=== PATIENT | female | born 1940 | race Two or more races ===

== ENCOUNTER → 2016-11-19 | Outpatient (CLI) | payer OTHER, MEDICARE ==
--- NOTE | 2016-11-19 10:36 | DX ---
Right elbow, 3 views. History: Trauma, pain Comparison examination:none available Findings: A 6 mm bone fragment arises from the coronoid process, associated with an elbow joint effu rudi. Alignment is normal. Joint spaces are maintained. Impression: 6 mm avulsion fracture from the coronoid process. Results called to Dr. Joaquina Bang at the time of the reading.
== END ==
LOC: FIMAGING 09:27
PROVIDERS: ATTEND Family Medicine
DX: S52.041A Displaced fracture of coronoid process of right ulna, initial encounter for closed fracture (principal); M25.521 Pain in right elbow

== ENCOUNTER → 2018-02-07 | Outpatient (CLI) | payer OTHER, MEDICARE | LOC: BHFA 14:00 | PROVIDERS: ATTEND Internal Medicine Cardiovascular Disease | DX: I25.10 Atherosclerotic heart disease of native coronary artery without angina pectoris (principal) | CPT/HCPCS: 78452; 93017; A9500; J2785 ==

== ENCOUNTER 2019-03-01 16:24 | Inpatient (IN) | payer OTHER, MEDICARE ==
--- NOTE | 2019-03-01 16:39 | EDPHY ---
H & P Stated Complaint: Recent chest cold, low oxygen at home. Time Seen by Provider: 03/01/19 16:38 HPI/ROS: CHIEF COMPLAINT: Cough, hypoxemia HISTORY OF PRESENT ILLNESS: The patient presents the emergency department with complaints of cough and hypoxemia. The patient's was recently sick with bronchitis. She is now developed symptoms. She reports a subjective fever. She has a dry hacking cough. She denies any abdominal pain, vomiting or diarrhea. She reports moderate dyspnea. REVIEW OF SYSTEMS: A comprehensive 10 point review of systems is otherwise negative aside from elements mentioned in the history of present illness. Source: Patient Exam Limitations: No limitations - Personal History Current Tetanus Diphtheria and Acellular Pertussis (TDAP): No - Medical/Surgical History Hx Asthma: No Hx Chronic Respiratory Disease: No Hx Diabetes: No Hx Cardiac Disease: Yes Hx Renal Disease: No Hx Cirrhosis: No Hx Alcoholism: No Hx HIV/AIDS: No Hx Splenectomy or Spleen Trauma: No Other PMH: htn, glaucoma,anxiety. lung ca remission. COPD. - Social History Smoking Status: Current every day smoker - Physical Exam Exam: General Appearance: Alert, no distress Eyes: Pupils equal and round no pallor or injection ENT, Mouth: Mucous membranes moist Respiratory: There are no retractions, lungs are clear to auscultation Cardiovascular: Regular rate and rhythm Gastrointestinal: Abdomen is soft and nontender, no masses, bowel sounds normal Neurological: A&O, normal motor function, normal sensory exam, normal cranial nerves Skin: Warm and dry, no rashes Musculoskeletal: Neck is supple nontender Extremities: symmetrical, full range of motion Constitutional: Initial Vital Signs Temperature (C) 36.5 C 03/01/19 16:26 Heart Rate 84 03/01/19 16:26 Respiratory Rate 20 03/01/19 16:26 Blood Pressure 151/100 H 03/01/19 16:26 O2 Sat (%) 79 L 03/01/19 16:26 O2 Delivery Mode Nasal Cannula O2 (L/minute) 3 Allergies/Adverse Reactions: oxycodone HCl [From OxyContin] Allergy (Intermediate, Verified 03/03/14 16:33) SYNCOPE/EMESIS Penicillins Allergy (Unknown, Verified 03/03/14 16:33) codeine [Codeine] Allergy (Verified 03/03/14 16:33) SYNCOPE/EMESIS oxycodone [Oxycodone] Allergy (Verified 03/03/14 16:33) SYNCOPE/EMESIS PLASTIC BANDAGES Allergy (Mild, Uncoded 03/03/14 16:33) Rash Home Medications: Medication Instructions Recorded Albuterol [Proventil Inhaler HFA 1 - 2 puffs IH Q4H PRN 03/03/14 (*)] Brimonidine 0.1% [ALPHAGAN P 0.1% 1 drops RTEYE TID 03/03/14 (*)] Calcium Carb W/Vit D [Calcium Carb 500 mg PO DAILY 03/03/14 W/Vit D 500/200 (*)] Diltiazem HCl [Diltiazem 24Hr ER] 300 mg PO DAILY@1800 03/03/14 Lisinopril [Zestril 20 mg (*)] 40 mg PO DAILY 03/03/14 Lumigan 0.01% (RX) 1 drop RTEYE HS 03/03/14 Multivitamins [Multivitamin (*)] 1 each PO DAILY 03/03/14 Psyllium Husk/Aspartame [Konsyl 3.5 gm PO DAILY 03/03/14 Psyllium Fiber Packet] Xanax 0.5 MG (RX) 0.5 mg PO TID PRN 03/03/14 Albuterol Hfa Anes Only [Proair 2 puffs IH QID #1 mdi 03/04/14 Hfa Anes Only] Fluticasone/Salmeter 250/50Mcg 1 puffs IH BID #1 disk 03/04/14 [Advair 250/50 (RX)] Hydrochlorothiazide [HCTZ (*)] 12.5 mg PO BID PRN #30 cap 03/04/14 Medical Decision Making - Diagnostics Imaging Results: Imaging Impressions Chest X-Ray 03/01/19 16:39 Impression: Increased haziness of the lung bases probably represents artifact from overlying breast tissue. There is mild central vascular prominence however. ED Course/Re-evaluation: Patient presents to the ED with dyspnea and a bronchospastic cough. The patient was noted to be hypoxemic and corrects with 2 L nasal cannula oxygen. Patient's chest x-ray demonstrates no evidence of a active infiltrate. The patient's was recently sick with bronchitis as well. The patient was treated with supplemental oxygen, IV Solu-Medrol and albuterol/ DuoNeb breathing treatments. Re-evaluated the patient at 7:00 p.m.. We attempted ambulation in the patient' s oxygen saturation dropped into the 60s. She will require admission to the hospital for further evaluation management. Antibiotics are withheld given the absence of infiltrate on chest x-ray. Consultation was made with Dr. Judi Madera from the hospitalist service who will admit the patient primarily. Differential Diagnosis: Differential diagnosis considered includes asthma, bronchitis, pneumonia - Data Points Laboratory Results: Laboratory Results 03/01/19 16:50 03/01/19 16:50 03/01/19 03/01/19 03/01/19 16:50 16:50 16:50 WBC 7.97 10^3/uL 10^3/uL (3.80-9.50) RBC 4.69 10^6/uL 10^6/uL (4.18-5.33) Hgb 14.8 g/dL g/dL (12.6-16.3) Hct 43.1 % % (38.0-47.0) MCV 91.9 fL fL (81.5-99.8) MCH 31.6 pg pg (27.9-34.1) MCHC 34.3 g/dL g/dL (32.4-36.7) RDW 13.1 % % (11.5-15.2) Plt Count 165 10^3/uL 10^3/uL (150-400) MPV 8.9 fL fL (8.7-11.7) Neut % (Auto) 64.7 % % (39.3-74.2) Lymph % (Auto) 18.6 % % (15.0-45.0) [place] % (Auto) 15.2 % H % (4.5-13.0) Eos % (Auto) 0.5 % L % (0.6-7.6) Baso % (Auto) 0.5 % % (0.3-1.7) Nucleat RBC Rel Count 0.0 % % (0.0-0.2) Absolute Neuts (auto) 5.16 10^3/uL 10^3/uL (1.70-6.50) Absolute Lymphs (auto) 1.48 10^3/uL 10^3/uL (1.00-3.00) Absolute Monos (auto) 1.21 10^3/uL H 10^3/uL (0.30-0.80) Absolute Eos (auto) 0.04 10^3/uL 10^3/uL (0.03-0.40) Absolute Basos (auto) 0.04 10^3/uL 10^3/uL (0.02-0.10) Absolute Nucleated RBC 0.00 10^3/uL 10^3/uL (0-0.01) Immature Gran % 0.5 % % (0.0-1.1) Immature Gran # 0.04 10^3/uL 10^3/uL (0.00-0.10) VBG Lactic Acid 2.0 mmol/L mmol/L (0.7-2.1) Sodium 126 mEq/L L mEq/L (135-145) Potassium 4.1 mEq/L mEq/L (3.5-5.2) Chloride 87 mEq/L L mEq/L (97-110) Carbon Dioxide 29 mEq/l mEq/l (22-31) Anion Gap 10 mEq/L mEq/L (6-14) BUN 7 mg/dL mg/dL (7-23) Creatinine 0.5 mg/dL L mg/dL (0.6-1.0) Estimated GFR > 60 Glucose 98 mg/dL mg/dL (70-100) Calcium 8.6 mg/dL mg/dL (8.5-10.4) Medications Given: Discontinued Medications Albuterol (Proventil Neb) 3 ml IH EDNOW ONE Stop: 03/01/19 17:37 Last Admin: 03/01/19 18:22 Dose: 3 ml Albuterol/Ipratropium (Duoneb) 3 ml IH EDNOW ONE Stop: 03/01/19 17:37 Last Admin: 03/01/19 18:22 Dose: 3 ml Methylprednisolone Sodium Succinate (Solu-Medrol) 125 mg IVP EDNOW ONE Stop: 03/01/19 17:37 Last Admin: 03/01/19 18:26 Dose: 125 mg Departure - Departure Disposition: [facility] Inpatient Acute Clinical Impression: Acute bronchitis Condition: Good Referrals: Joaquina Bang MD [Primary Care Provider] - As per Instructions
[2019-03-01 17:13] LABS: PLATELET COUNT 165 10^3/uL (150-400)
[2019-03-01] MEDS ORDERED: ALBUTEROL 3 ML DEYVIAL IH ONE (17:36)
[2019-03-01] MEDS ORDERED: IPRATROPIUM/ALBUTEROL 3 ML DEYVIAL IH ONE (17:36)
[2019-03-01] MEDS ORDERED: methylPREDNISolone SOD SUCC 125 MG/2 ML VIAL IVP ONE (17:36)
[2019-03-01] MEDS ORDERED: oxyCODONE IR 5 MG TAB PO PRN (20:33)
[2019-03-01] MEDS ORDERED: HYDROCODONE/APAP 5/325 TAB PO PRN (20:33)
[2019-03-01] MEDS ORDERED: ONDANSETRON 4 MG/2 ML VIAL IVP PRN (20:33)
[2019-03-01] MEDS ORDERED: ACETAMINOPHEN 325 MG TAB PO PRN (20:33)
[2019-03-01] MEDS ORDERED: ONDANSETRON DISINTEGRATING 4 MG TAB PO PRN (20:33)
[2019-03-01] MEDS ORDERED: PROMETHAZINE HCL 25 MG/ML INJ IVP PRN (20:33)
[2019-03-01] MEDS ORDERED: ALBUTEROL 3 ML DEYVIAL IH PRN (20:33)
[2019-03-01] MEDS ORDERED: HYDROmorphONE/DILAUDID 1 MG/ML INJ IVP PRN (20:33)
[2019-03-01] MEDS ORDERED: ALPRAZolam 0.25 MG TAB PO PRN (20:35)
[2019-03-01] MEDS: IPRATROPIUM/ALBUTEROL 3 ML DEYVIAL IH SCH (21:18)
[2019-03-01] MEDS ORDERED: TEARS/DEXTRAN 70/HYPROMELLOSE 15 ML OPHT.BTL EACHEYE PRN (22:02)
--- NOTE | 2019-03-01 22:04 | PDGENHP ---
History and Physical - Chief Complaint sob - History of Present Illness 79 yo F with PMH that includes COPD and continued smoking of 1 pack/day, small cell lung cancer stage 4 diagnosed in 2010 and s/p xrt and chemo presenting with complaints of several days of increasing sob and found to have o2 dropping into the 60s on RA in the ER. Patient notes that her was ill with similar issues last week, and about 2 days after he got sick, she began to have sxs. He recovered however her sxs continued to worsen, she has been experiencing wheezing and difficulty breathing and cough that has been largely unproductive. She has had fever at home to 100.6 and has been feeling generally weak and fatigued, not much appetite. She has felt so poorly that for the last 4 days she has cut down from 1ppd to about 1/2 ppd. She does want to quit smoking and has tried in the past with chantix but not been successful. She had a similar illness last month, but did not get this sick from it. She does not use oxygen at home. History Information - Allergies/Home Medication List Allergies/Adverse Reactions: oxycodone HCl [From OxyContin] Allergy (Intermediate, Verified 03/03/14 16:33) SYNCOPE/EMESIS Penicillins Allergy (Unknown, Verified 03/03/14 16:33) codeine [Codeine] Allergy (Verified 03/03/14 16:33) SYNCOPE/EMESIS oxycodone [Oxycodone] Allergy (Verified 03/03/14 16:33) SYNCOPE/EMESIS PLASTIC BANDAGES Allergy (Mild, Uncoded 03/03/14 16:33) Rash Home Medications: ALPRAZolam [Xanax 0.5 MG (*)] 0.75 mg PO TID PRN #0 03/03/14 [Last Taken 10:00] Bimatoprost 0.01% [Lumigan 0.01% (*)] 1 drops RTEYE HS #0 03/03/14 [Last Taken 02/28/19] Brimonidine 0.1% [ALPHAGAN P 0.1% (*)] 1 drops RTEYE TID 03/03/14 [Last Taken 10:00] Calcium Carb W/Vit D [Calcium Carb W/Vit D 500/200 (*)] 1 each PO DAILY [Last Taken 03/01/19] Multivitamins [Multivitamin (*)] 1 each PO DAILY 03/03/14 [Last Taken 03/01/19] Aspirin EC [Aspirin EC 81 mg (*)] 81 mg PO DAILY 03/01/19 [Last Taken 03/01/19] Carboxymethylcellulose Sodium [Refresh Tears] 2 drops EACHEYE Q4HRS PRN [Last Taken 03/01/19] Cyanocobalamin [Vitamin B12 (*)] 1,000 mcg PO DAILY 03/01/19 [Last Taken ] Diltiazem HCl [Cartia XT 240mg] 240 mg PO HS 03/01/19 [Last Taken 02/28/19] Herbals/Supplements -Info Only 1 ea PO DAILY 03/01/19 [Last Taken 03/01/19] Lisinopril [Zestril 40 mg (*)] 40 mg PO DAILY 03/01/19 [Last Taken 03/01/19] Timolol 0.5% [TIMOPTIC 0.5% (*)] 1 drops RTEYE DAILY 03/01/19 [Last Taken ] I have personally reviewed and updated: family history, medical history, social history, surgical history - Past Medical History cancer (small cell lung cancer 2010), COPD, hypertension, psychiatric history ( anxiety) Additional medical history: glaucoma - Surgical History Reports: no pertinent surgical hx - Family History Positive for: non-pertinent - Social History Smoking Status: Current every day smoker (1 ppd for 50+ years) Alcohol Use: Rarely Drug Use: None Additional social history: Review of Systems Review of Systems: ROS: 10pt was reviewed & negative except for what was stated in HPI & below Physical Exam Physical Exam: Temp Pulse Resp BP Pulse Ox 36.3 C 83 18 179/98 H 92 03/01/19 20:18 03/01/19 21:19 03/01/19 21:19 03/01/19 20:18 03/01/19 21:19 O2 (L/minute) 3 Constitutional: appears nourished, chronically ill appearing Eyes: PERRL, anicteric sclera Ears, Nose, Mouth, Throat: moist mucous membranes, hearing normal Cardiovascular: regular rate and rhythym, no murmur, rub, or gallop, edema Respiratory: reduced air movement, expiratory wheeze, respiratory distress Gastrointestinal: normoactive bowel sounds, soft, non-tender abdomen Genitourinary: no bladder tenderness Skin: warm, normal color Musculoskeletal: full muscle strength Neurologic: AAOx3 Psychiatric: interacting appropriately, not anxious Lab Data & Imaging Review 03/01/19 16:50 03/01/19 16:50 WBC 7.97 10^3/uL (3.80-9.50) 03/01/19 16:50 RBC 4.69 10^6/uL (4.18-5.33) 03/01/19 16:50 Hgb 14.8 g/dL (12.6-16.3) 03/01/19 16:50 Hct 43.1 % (38.0-47.0) 03/01/19 16:50 MCV 91.9 fL (81.5-99.8) 03/01/19 16:50 MCH 31.6 pg (27.9-34.1) 03/01/19 16:50 MCHC 34.3 g/dL (32.4-36.7) 03/01/19 16:50 RDW 13.1 % (11.5-15.2) 03/01/19 16:50 Plt Count 165 10^3/uL (150-400) 03/01/19 16:50 MPV 8.9 fL (8.7-11.7) 03/01/19 16:50 Neut % (Auto) 64.7 % (39.3-74.2) 03/01/19 16:50 Lymph % (Auto) 18.6 % (15.0-45.0) 03/01/19 16:50 [place] % (Auto) 15.2 % (4.5-13.0) H 03/01/19 16:50 Eos % (Auto) 0.5 % (0.6-7.6) L 03/01/19 16:50 Baso % (Auto) 0.5 % (0.3-1.7) 03/01/19 16:50 Nucleat RBC Rel Count 0.0 % (0.0-0.2) 03/01/19 16:50 Absolute Neuts (auto) 5.16 10^3/uL (1.70-6.50) 03/01/19 16:50 Absolute Lymphs (auto) 1.48 10^3/uL (1.00-3.00) 03/01/19 16:50 Absolute Monos (auto) 1.21 10^3/uL (0.30-0.80) H 03/01/19 16:50 Absolute Eos (auto) 0.04 10^3/uL (0.03-0.40) 03/01/19 16:50 Absolute Basos (auto) 0.04 10^3/uL (0.02-0.10) 03/01/19 16:50 Absolute Nucleated RBC 0.00 10^3/uL (0-0.01) 03/01/19 16:50 Immature Gran % 0.5 % (0.0-1.1) 03/01/19 16:50 Immature Gran # 0.04 10^3/uL (0.00-0.10) 03/01/19 16:50 VBG Lactic Acid 2.0 mmol/L (0.7-2.1) 03/01/19 16:50 Sodium 126 mEq/L (135-145) L 03/01/19 16:50 Potassium 4.1 mEq/L (3.5-5.2) 03/01/19 16:50 Chloride 87 mEq/L (97-110) L 03/01/19 16:50 Carbon Dioxide 29 mEq/l (22-31) 03/01/19 16:50 Anion Gap 10 mEq/L (6-14) 03/01/19 16:50 BUN 7 mg/dL (7-23) 03/01/19 16:50 Creatinine 0.5 mg/dL (0.6-1.0) L 03/01/19 16:50 Estimated GFR > 60 03/01/19 16:50 Glucose 98 mg/dL (70-100) 03/01/19 16:50 Calcium 8.6 mg/dL (8.5-10.4) 03/01/19 16:50 Visualized and Interpreted Chest x-ray results: Yes Chest X-Ray results: no infiltrate Assessment & Plan Assessment: Acute bronchitis (Acute) 79 yo F with PMH that includes copd, SCC of the lung and continued tobacco use presenting with AHRF in the setting of copd exacerbation # acute hypoxic respiratory failure: able to maintain her o2 sats in the 90s on 2-3 L at rest but desaturates to the 60s with ambulation, significant wheezing and increased wob noted with decreased bs throughout. Due to copd exac as next. She notes her usual o2 is in the low 90s but has been at times as low as 85% and likely some element of chronicity to this # copd exacerbation: very poor air mvmt with scattered wheeze, continue duonebs scheduled, albuterol prn and IV steroids for now given severity of her sxs. No clear infiltrate on cxr but somewhat limited study, started on levofloxacin for now, repeat cxr in am. Viral pcr pending, presumably due to viral illness # SCC lung: diagnosed in 2010 and reportedly stage 4 at that time, s/p xrt and radiation and appears she has done remarkably well, no clear e/o malignancy on CXR, last CT in our system from 2017 noted decreased pulmonary nodules and decreased mediastinal adenopathy # HTN: has been elevated since arrival however patient also hypoxic and anxious at that time, will monitor, continue home meds diltiazem and lisinopril # anxiety: she notes her BP is very affected by anxiety and when her bp is up she typically takes a xanax, will continue prn xanax # glaucoma: continue her home regimen # tobacco use: recommending cessation # IP status, will require > 48 hours stay for eval/mgmt of above Patient new to my care. Old records reviewed and summarized as above. Care plan reviewed with ER doctor, further hx obtained from patients present at bedside.
[2019-03-01] MEDS ORDERED: DILTIAZEM XR 240 MG CAP PO SCH (22:15)
[2019-03-01] MEDS: BRIMONIDINE 0.1% 5 ML OPHT.BTL RTEYE SCH (23:10)
[2019-03-01] MEDS: BIMATOPROST 0.01% RTEYE SCH (23:10)
[2019-03-02] MEDS: methylPREDNISolone SOD SUCC 125 MG/2 ML VIAL IVP SCH ×3 (00:15→21:49)
[2019-03-02] MEDS: IPRATROPIUM/ALBUTEROL 3 ML DEYVIAL IH SCH ×4 (04:46→22:13)
[2019-03-02] MEDS: ACETYLCYSTEINE 10% IH/PO 4 ML VIAL IH SCH ×4 (04:46→22:13)
[2019-03-02 05:59] LABS: PLATELET COUNT 162 10^3/uL (150-400)
[2019-03-02] MEDS: TIMOLOL 0.5% RTEYE SCH (07:20)
[2019-03-02] MEDS: BRIMONIDINE 0.1% 5 ML OPHT.BTL RTEYE SCH ×3 (07:20→21:49)
[2019-03-02] MEDS: CALCIUM CARB W/VIT D 500 MG TAB PO SCH (08:59)
[2019-03-02] MEDS: LISINOPRIL 40 MG TAB PO SCH (08:59)
[2019-03-02] MEDS: MULTIVITAMINS 1 EACH TAB PO SCH (09:00)
[2019-03-02] MEDS: ENOXAPARIN 40 MG/0.4 ML SYR SC SCH (09:00)
[2019-03-02] MEDS: CYANO/VITAMIN B12 1000 MCG TAB PO SCH (09:00)
[2019-03-02] MEDS: ASPIRIN EC 81 MG TAB PO SCH (09:00)
[2019-03-02] MEDS: FLUTICASONE/SALMETER 250/50MCG DISKUS IH SCH ×2 (10:10→22:13)
--- NOTE | 2019-03-02 11:11 | ASMTCASEMG ---
Living Arrangements What is your living Answers: With Spouse arrangement? Who do you live with? Type Of Residence What kind of residence do Answers: House you live in? Stairs in Home Answers: Yes Notes: Pt states no issue Environment getting up and down stairs Discharge Plan Comments Coordination Status Comments Notes: CM met with pt and her Paramjit ("Fritz") in her room. Pt admitted last night with asthmatic bronchitis. Her recently had bronchitis. She has a history of lung cancer (in remission) and has COPD. She is a daily smoker (1/2 - 1 pack per day) . She has attempted smoking cessation in the past using Chantix but was unsuccessful. She does not use oxygen at home but is on 2L here as her oxygen saturations drop otherwise. She lives at home with Fritz in [place]. She does not use a walker or any other assistive devices. She does not drive; Fritz takes her where she needs to go. Therapies are pending. CM will continue to follow. KEYON D/C plan: TBD Date Signed: 03/02/2019 11:08 AM Electronically Signed By:Sarah Lu
--- NOTE | 2019-03-02 11:20 | PDMN ---
Medical Necessity Medical necessity: Pt meets IP criteria per MD & MCG M-100; est los >2 mn for eval/tx of COPD exacerbation w/acute hypoxic respiratory failure (O2 desats to the 60s w/ambulation) & presumed viral illness; admit for further workup/ monitoring, IV abx, IV Solu-Medrol & respiratory supportive care; comorbid stage 4 lung cancer, smoker; per H&P & order 03/01/19
--- NOTE | 2019-03-02 11:28 | HOSPPROG ---
Hospitalist Progress Note Assessment/Plan: 79 yo F with PMH that includes copd, SCC of the lung and continued tobacco use presenting with AHRF in the setting of copd exacerbation # acute hypoxic respiratory failure: able to maintain her o2 sats in the 90s on 2-3 L at rest but desaturates to the 60s with ambulation, significant wheezing and increased wob noted with decreased bs throughout. Due to copd exac # copd exacerbation: very poor air mvmt with scattered wheeze, continue duonebs scheduled, albuterol prn and IV steroids for now given severity of her sxs. -Due to viral illness and viral Bronchitis -Decrease IV steroids today #Viral Acute Bronchitis -Para Influenza mediated -Likely no need for abx. Will stop pending procalcitonin #Hyponatremia, unclear chronicity. Appears Euvolemic -will obtain urine studies # SCC lung: diagnosed in 2010 and reportedly stage 4 at that time, s/p xrt and radiation and appears she has done remarkably well, no clear e/o malignancy on CXR, last CT in our system from 2017 noted decreased pulmonary nodules and decreased mediastinal adenopathy # HTN: continue home meds diltiazem and lisinopril # anxiety: will continue prn xanax # glaucoma: continue her home regimen # tobacco use: recommending cessation. She refuses Nicotine replacement therapty # IP status, will require > 48 hours stay for eval/mgmt of above Dispo: cont inpatient care. Not safe or ready for discharge Subjective: still with increased work of breathing. Overall feels better. Afebrile. no cp, no leg edema. wants to go home today Objective: Vital Signs Temp Pulse Resp BP Pulse Ox 36.4 C 74 16 158/110 H 92 03/02/19 07:58 03/02/19 07:58 03/02/19 07:58 03/02/19 08:59 03/02/19 07:58 Microbiology 03/01/19 22:40 Respiratory Panel (PCR) - Final Nasal, Sinus - Swab Parainfluenza Virus Type 3 Laboratory Results 03/02/19 04:42 03/02/19 04:42 - Physical Exam Constitutional: no apparent distress, chronically ill appearing Eyes: PERRL Ears, Nose, Mouth, Throat: moist mucous membranes, hearing normal Cardiovascular: regular rate and rhythym, No edema Respiratory: reduced air movement (but able to move air in all pulm areas), expiratory wheeze, other (incrased work of breathing) Gastrointestinal: normoactive bowel sounds, soft, non-tender abdomen Skin: warm Neurologic: AAOx3 Psychiatric: interacting appropriately, not anxious, not encephalopathic Lymph, Heme, Immunologic: No petechiae ICD10 Worksheet Patient Problems: Problems Problem Status Onset Acute bronchitis Acute chronic disease mgmt/transitional care Acute Hypertensive urgency, malignant Acute
[2019-03-02] MEDS: ALPRAZolam 0.25 MG TAB PO PRN ×2 (12:21→21:48)
[2019-03-02] MEDS: ROSUVASTATIN CALCIUM 10 MG TAB PO SCH (18:07)
[2019-03-02] MEDS: DILTIAZEM XR 240 MG CAP PO SCH (18:08)
[2019-03-02] MEDS: BIMATOPROST 0.01% RTEYE SCH (21:50)
[2019-03-03] MEDS: IPRATROPIUM/ALBUTEROL 3 ML DEYVIAL IH SCH ×4 (05:34→21:43)
[2019-03-03] MEDS: ACETYLCYSTEINE 10% IH/PO 4 ML VIAL IH SCH ×4 (05:34→21:43)
[2019-03-03] MEDS: BRIMONIDINE 0.1% 5 ML OPHT.BTL RTEYE SCH ×3 (08:45→21:21)
[2019-03-03] MEDS: TIMOLOL 0.5% RTEYE SCH (08:45)
[2019-03-03] MEDS: FLUTICASONE/SALMETER 250/50MCG DISKUS IH SCH ×2 (09:16→21:48)
[2019-03-03] MEDS: ALPRAZolam 0.25 MG TAB PO PRN ×2 (09:25→21:21)
[2019-03-03] MEDS: CYANO/VITAMIN B12 1000 MCG TAB PO SCH (09:26)
[2019-03-03] MEDS: LISINOPRIL 40 MG TAB PO SCH (09:26)
[2019-03-03] MEDS: ASPIRIN EC 81 MG TAB PO SCH (09:26)
[2019-03-03] MEDS: MULTIVITAMINS 1 EACH TAB PO SCH (09:26)
[2019-03-03] MEDS: methylPREDNISolone SOD SUCC 125 MG/2 ML VIAL IVP SCH (09:27)
[2019-03-03] MEDS: ENOXAPARIN 40 MG/0.4 ML SYR SC SCH (09:27)
[2019-03-03] MEDS: CALCIUM CARB W/VIT D 500 MG TAB PO SCH (09:27)
[2019-03-03] MEDS ORDERED: FUROSEMIDE 20 MG/2 ML VIAL IVP ONE (12:55)
--- NOTE | 2019-03-03 13:02 | HOSPPROG ---
Hospitalist Progress Note Assessment/Plan: 79 yo F with PMH that includes copd, SCC of the lung and continued tobacco use presenting with AHRF in the setting of copd exacerbation # acute hypoxic respiratory failure: -due to COPD exacerbation # copd exacerbation: very poor air mvmt with scattered wheeze, continue duonebs scheduled, albuterol prn and IV steroids for now given severity of her sxs. -Due to viral illness and viral Bronchitis -change IV to PO steroids #Viral Acute Bronchitis -Para Influenza mediated -PC negative. No abx #Hyponatremia, unclear chronicity. -urine studies c/w appropriate renal retention of Na -repeat CXR concerning for mild CHF. BNP elevated -Trial of diuretics. Check TTE -Repeat urine studies and labs in a.m. # SCC lung: diagnosed in 2010 and reportedly stage 4 at that time, s/p xrt and radiation and appears she has done remarkably well, no clear e/o malignancy on CXR, last CT in our system from 2017 noted decreased pulmonary nodules and decreased mediastinal adenopathy # HTN: continue home meds diltiazem and lisinopril # anxiety: will continue prn xanax # glaucoma: continue her home regimen # tobacco use: recommending cessation. She refuses Nicotine replacement therapy # Insomnia: trail of Melatonin # IP status, will require > 48 hours stay for eval/mgmt of above Dispo: cont inpatient. Subjective: still short of breath. no cp. overall slightly better, but still on 3-4 Liters of O2 Objective: Vital Signs Temp Pulse Resp BP Pulse Ox 36.7 C 70 18 165/94 H 91 L 03/03/19 08:51 03/03/19 11:53 03/03/19 11:53 03/03/19 09:26 03/03/19 11:53 Microbiology 03/01/19 22:40 Respiratory Panel (PCR) - Final Nasal, Sinus - Swab Parainfluenza Virus Type 3 Laboratory Results 03/02/19 04:42 03/02/19 04:42 03/02/19 03/03/19 03/04/19 05:59 05:59 05:59 Intake Total 300 Output Total 1999 Balance -1700 - Physical Exam Constitutional: no apparent distress, not in pain Eyes: PERRL, EOMI Ears, Nose, Mouth, Throat: moist mucous membranes Cardiovascular: regular rate and rhythym, no murmur, rub, or gallop, systolic murmur, No edema Respiratory: reduced air movement Skin: warm Neurologic: AAOx3 Psychiatric: interacting appropriately, not anxious, not encephalopathic Lymph, Heme, Immunologic: No petechiae ICD10 Worksheet Patient Problems: Problems Problem Status Onset Acute bronchitis Acute chronic disease mgmt/transitional care Acute Hypertensive urgency, malignant Acute
[2019-03-03] MEDS: PSYLLIUM METAMUCIL 1 PKT PO SCH (14:45)
--- NOTE | 2019-03-03 14:54 | ASMTCMCOM ---
CM Note CM Note Notes: CM met with pt and . therapy's recommend RN/OT. Pt felt to overwhelmed to discuss the options. RN reports that home care could be beneficial because she is new to using oxygen and could use the support. CM to follow. Plan: Home Care OT/RN Date Signed: 03/03/2019 02:53 PM Electronically Signed By:Staci Ny
--- NOTE | 2019-03-03 16:51 | ECHO ---
[email or web address] [address] [address] Main: [phone] Echocardiography Examination Transthoracic Name: JUDI REYNAGA MR#: [id number] Study Date: 03/03/2019 Study Time: 03:02 PM Date of : 1940 Age: 79 year(s) Height: 162.6 cm (64 in.) Weight: 63.96 kg (141 lb.) BSA: 1.69 m2 Gender: Female Examination: Echo Contrast: I.V. dose of agitated saline Image Quality: Adequate Rhythm: Heart Rate: 64 bpm BP: 151 mmHg/74 mmHg Indication: hypoxemia Procedure Staff Referring Physician: Site Surveyor: Yani Newman [facility] Reading Physician: Golden Burk MD Requesting Provider: Ordering Physician: Robert Coats Indication: hypoxemia Measurements Chambers AV/MV Label Value Normal Value Label Value Normal Value LVOTd 2.1 cm (1.8cm - 2cm) AV PGmax 29 mmHg LVOT VTI 20.7 cm (18cm - 22cm) AV PGmean 18 mmHg LVDd, 2D 4.4 cm (3.9cm - 5.3cm) AV Vmax 2.71 m/s LVDs, 2D 3.3 cm (2.1cm - 4cm) NAHOMY (VTI) 1 cm2 IVSd, 2D 1 cm (0.6cm - 1.1cm) MV E Vmax 0.78 m/s LVPWd, 2D 1 cm MV A Vmax 0.75 m/s LVEF, BP 51 % (55% - 70%) MV E/A 1.04 LVEF, 2D 50 % (54% - 74%) MV E/E' lateral 11.4 LVOT PGmean 1 mmHg MV E/E' septal 15.4 (0.45 - 1.25) LVOT Vmean 0.57 m/s MV DT 162 ms RVDd, 2D 4.7 cm (1.9cm - 3.8cm) MV E' septal 0.05 m/s TAPSE 2.4 cm MV E' lateral 0.07 m/s LA Volume, BP 72 ml (22ml - 52ml) MV E/E' mean 13 LADs, 2D 3.7 cm (2.7cm - 3.8cm) MV E' mean 0.06 m/s LAESV index, BP 42.6 ml/m2 TV/PV RA Area 22 cm2 Label Value Normal Value Additional Vessels RA Pressure 5 mmHg Label Value Normal Value PV PGmax 3 mmHg AoAsc 3.1 cm PV Vmax, Caliper 0.92 m/s (0.6m/s - 0.9m/s) Patient: JUDI REYNAGA Study Date: 03/03/2019 Page 1 of 3 03:02 PM AoRoot, 2D 3 cm (1.4cm - 2.6cm) Conclusions Overall Conclusions: No pericardial effusion. Preserved left ventricular systolic function. Left ventricular hypertrophy. Diastolic dysfunction by Doppler. Mild mitral regurgitation. Aortic valve calcification with mild aortic stenosis. Peak gradient is 29 mm of mercury with a mean gradient of 18 mm of mercury. Findings Left Ventricle: Left ventricle is normal in size. Normal global systolic left ventricular function. EF evaluated by EF (biplane Paris's). The ejection fraction, measured by Simpsons method, is 51 %. EF range is estimated at 50 % - 55 %. There is mild concentric left ventricular hypertrophy. There are no regional wall motion abnormalities. Grade II Diastolic Dysfunction. Right Ventricle: Normal size right ventricle. Right ventricular systolic function is normal. Left Atrium: The left atrium is normal in size. IAS: An agitated saline study was performed and was negative for intracardiac shunting. Right Atrium: The right atrium is mildly dilated. Mitral Valve: Mitral valve appears structurally normal. Mild mitral regurgitation. No mitral valve stenosis. There is mild mitral thickening. There is mild mitral annular calcification. Aortic Valve: No significant aortic valve regurgitation. There is mild aortic stenosis. Aortic leaflets exhibit moderate calcification. The aortic valve is probably trileaflet. Aortic Valve Measurements AV Vmax is 2.71 m/s. AV PGmax is 29 mmHg. AV PGmean is 18 mmHg. LVOT VTI / AV VTI is 0.30. NAHOMY (VTI) is 1.0 cm2. Tricuspid Valve: There is a focal thickening on the septal tricuspid leaflet.. Trivial tricuspid regurgitation. Pulmonary artery pressure cannot be assessed due to inadequate TR signal. Pulmonic Valve: Pulmonic leaflets are structurally normal. Trivial pulmonic valve regurgitation is present. Aorta: The aortic root size in 2D measures 3.0 cm. The aortic root exhibits normal size. The ascending aorta measures 3.1 cm. Ascending aorta is normal in size. Aorta Measurements AoRoot, 2D is 3.0 cm. Exam Details Procedure Ordered: Echo Procedure Status: Routine study Image Quality: Adequate Contrast: I.V. dose of agitated salineIntravenous contrast was administered to evaluate intracardiac shunting Facility Location: Cardiac Echo 1 (No Signature Object) Patient: JUDI REYNAGA Study Date: 03/03/2019 Page 2 of 3 03:02 PM Patient: JUDI REYNAGA Study Date: 03/03/2019 Page 3 of 3 03:02 PM [id number]
[2019-03-03] MEDS: ROSUVASTATIN CALCIUM 10 MG TAB PO SCH (18:39)
[2019-03-03] MEDS: DILTIAZEM XR 240 MG CAP PO SCH (18:40)
[2019-03-03] MEDS: MELATONIN 3 MG TAB PO SCH (21:21)
[2019-03-03] MEDS: BIMATOPROST 0.01% RTEYE SCH (21:22)
[2019-03-04] MEDS: IPRATROPIUM/ALBUTEROL 3 ML DEYVIAL IH SCH ×4 (05:52→21:36)
[2019-03-04] MEDS: ACETYLCYSTEINE 10% IH/PO 4 ML VIAL IH SCH ×4 (05:52→21:37)
[2019-03-04 05:54] LABS: PLATELET COUNT 210 10^3/uL (150-400)
[2019-03-04] MEDS: TIMOLOL 0.5% RTEYE SCH (09:22)
[2019-03-04] MEDS: CYANO/VITAMIN B12 1000 MCG TAB PO SCH (09:25)
[2019-03-04] MEDS: CALCIUM CARB W/VIT D 500 MG TAB PO SCH (09:25)
[2019-03-04] MEDS: ASPIRIN EC 81 MG TAB PO SCH (09:25)
[2019-03-04] MEDS: LISINOPRIL 40 MG TAB PO SCH (09:25)
[2019-03-04] MEDS: PSYLLIUM METAMUCIL 1 PKT PO SCH (09:26)
[2019-03-04] MEDS: BRIMONIDINE 0.1% 5 ML OPHT.BTL RTEYE SCH ×3 (09:26→21:23)
[2019-03-04] MEDS: predniSONE 20 MG TAB PO SCH (09:26)
[2019-03-04] MEDS: MULTIVITAMINS 1 EACH TAB PO SCH (09:26)
[2019-03-04] MEDS: ENOXAPARIN 40 MG/0.4 ML SYR SC SCH (09:27)
[2019-03-04] MEDS ORDERED: FUROSEMIDE 20 MG/2 ML VIAL IVP ONE ×2 (10:01→14:00)
--- NOTE | 2019-03-04 11:14 | HOSPPROG ---
Hospitalist Progress Note Assessment/Plan: 79 yo F with PMH that includes copd, SCC of the lung and continued tobacco use presenting with AHRF in the setting of copd exacerbation # acute hypoxic respiratory failure: no baseline O2 requirement -due to COPD exacerbation and possible diastolic CHF exacerbation -improving. O2 needs now down to 2 L # copd exacerbation: very poor air mvmt with scattered wheeze, continue duonebs scheduled, albuterol prn and IV steroids for now given severity of her sxs. -Due to viral illness and viral Bronchitis -cont Prednisone, would taper in bhavani of burst # Diastolic CHF with exacerbation -TTE reviewed. Preserved EF -Resp and volume status improved since starting diuretics. NO longer has JVD. Will provide additional Lasix now and determine response -Unclear if she will need Lasix going forward. consider starting Lasix 20mg PO daily until f/u with PCP #Viral Acute Bronchitis -Para Influenza mediated -PC negative. No abx #Hyponatremia, unclear chronicity. -urine studies c/w appropriate renal retention of Na -repeat CXR concerning for mild CHF. BNP elevated -Trial of diuretics. Check TTE -Repeat urine studies c/w appropriate retention. -Etiology may be due to slight volume overload. Additional Lasix per above # SCC lung: diagnosed in 2010 and reportedly stage 4 at that time, s/p xrt and radiation and appears she has done remarkably well, no clear e/o malignancy on CXR, last CT in our system from 2017 noted decreased pulmonary nodules and decreased mediastinal adenopathy # HTN: continue home meds diltiazem and lisinopril # anxiety: will continue prn xanax # glaucoma: continue her home regimen # tobacco use: recommending cessation. She refuses Nicotine replacement therapy # Insomnia: trail of Melatonin # IP status, will require > 48 hours stay for eval/mgmt of above Dispo: cont inpatient. Subjective: no cp. Still SOB. Lots of diuresis since Lasix yesteray. Unclear if it was all recorded. still on 2 L O2. Objective: Vital Signs Temp Pulse Resp BP Pulse Ox 36.6 C 89 16 147/77 H 86 L 03/04/19 08:42 03/04/19 08:42 03/04/19 08:42 03/04/19 09:25 03/04/19 08:42 Laboratory Results 03/04/19 05:11 03/04/19 05:11 03/03/19 03/04/19 03/05/19 05:59 05:59 05:59 Intake Total 300 1022 Output Total 1999 9144 Balance -1708 -802 - Physical Exam Constitutional: no apparent distress Eyes: PERRL, EOMI Ears, Nose, Mouth, Throat: moist mucous membranes Cardiovascular: regular rate and rhythym, No edema Respiratory: no respiratory distress, no rales or rhonchi, reduced air movement Gastrointestinal: normoactive bowel sounds, soft, non-tender abdomen Skin: warm Neurologic: AAOx3 Psychiatric: interacting appropriately, not anxious, not encephalopathic Lymph, Heme, Immunologic: No petechiae ICD10 Worksheet Patient Problems: Problems Problem Status Onset Acute bronchitis Acute chronic disease mgmt/transitional care Acute Hypertensive urgency, malignant Acute
[2019-03-04] MEDS: FLUTICASONE/SALMETER 250/50MCG DISKUS IH SCH ×2 (11:17→21:40)
[2019-03-04] MEDS: ROSUVASTATIN CALCIUM 10 MG TAB PO SCH (18:05)
[2019-03-04] MEDS: DILTIAZEM XR 240 MG CAP PO SCH (18:06)
[2019-03-04] MEDS: BIMATOPROST 0.01% RTEYE SCH (21:23)
[2019-03-04] MEDS: ALPRAZolam 0.25 MG TAB PO PRN (21:25)
[2019-03-04] MEDS: MELATONIN 3 MG TAB PO SCH (21:27)
[2019-03-05] MEDS ORDERED: diphenhydrAMINE 25 MG CAP PO PRN (01:47)
[2019-03-05] MEDS: ACETYLCYSTEINE 10% IH/PO 4 ML VIAL IH SCH ×2 (04:57→10:44)
[2019-03-05] MEDS: IPRATROPIUM/ALBUTEROL 3 ML DEYVIAL IH SCH ×4 (04:57→21:36)
[2019-03-05] MEDS: TIMOLOL 0.5% RTEYE SCH (09:37)
[2019-03-05] MEDS: FLUTICASONE/SALMETER 250/50MCG DISKUS IH SCH ×2 (09:39→21:20)
[2019-03-05] MEDS: ASPIRIN EC 81 MG TAB PO SCH (09:40)
[2019-03-05] MEDS: CALCIUM CARB W/VIT D 500 MG TAB PO SCH (09:41)
[2019-03-05] MEDS: LISINOPRIL 40 MG TAB PO SCH (09:42)
[2019-03-05] MEDS: CYANO/VITAMIN B12 1000 MCG TAB PO SCH (09:42)
[2019-03-05] MEDS: MULTIVITAMINS 1 EACH TAB PO SCH (09:45)
[2019-03-05] MEDS: predniSONE 20 MG TAB PO SCH (09:45)
[2019-03-05] MEDS: BRIMONIDINE 0.1% 5 ML OPHT.BTL RTEYE SCH ×3 (09:46→21:15)
[2019-03-05] MEDS: ENOXAPARIN 40 MG/0.4 ML SYR SC SCH (09:48)
[2019-03-05] MEDS ORDERED: PROTOCOL MAGNESIUM 1 DOSE IV PRN (09:56)
[2019-03-05] MEDS ORDERED: PROTOCOL POTASSIUM 1 DOSE MISC PRN (09:56)
--- NOTE | 2019-03-05 10:01 | HOSPPROG ---
Hospitalist Progress Note Assessment/Plan: # acute hypoxic respiratory failure/COPD exacerbation: no baseline O2 requirement per report (89-93% at home), still with significant O2 use now -revwd echo/BNP, likely a combo of diastolic heart failure + acute parainfluenza virus infection -consider 1x lasix (already on PO) -decrease po steroids as contributing to insomnia -recheck cxr in AM -revwd discharge with home O2 tomorrow/Tu (she is open to this possibility so will ask RT to work on home O2) #acute Parainfluenza infection -resp precautions in place #Hyponatremia, mild/stable -urine studies c/w appropriate renal retention of Na # 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 at that time , s/p xrt and radiation and appears she has done remarkably well, no clear e/o malignancy on CXR, last CT in our system from 2016 noted decreased pulmonary nodules and decreased mediastinal adenopathy # HTN: stable on home meds # anxiety/insomnia -has tid prn alprzolam, scheduled 1 mg for night time use/insomnia -decrease po steroid # glaucoma: continue gtts # tobacco use, ongoing -She refuses Nicotine replacement therapy #hypokalemia- replace per protocol, check mag too PCP Dr Bang Dispo- possible discharge in 1-2 days with home O2 if otw stable DVT prophy- lovenox Subjective: Long discussion with her and usband re concerns about hypoxia, need for O2 chcf, implications of hypoxia/recent illness. Denies SOB/cp/n/v/d. Feels tired, not sleeping well at all (maybe a few hrs a nt). Objective: Vital Signs Temp Pulse Resp BP Pulse Ox 97.6 F 66 16 153/76 H 93 03/05/19 07:49 03/05/19 07:49 03/05/19 07:49 03/05/19 09:42 03/05/19 07:49 Laboratory Results 03/04/19 05:11 03/05/19 04:53 03/03/19 03/04/19 03/05/19 11:59 11:59 11:59 Intake Total 300 1022 3810 Output Total 1999 2493 0805 Balance -9457 -780 -0941 - Time Spent With Patient Time Spent with Patient: greater than 35 minutes Time Spent with Patient: Greater than 35 minutes spent on this patients care, greater than 50% of time spent counseling, educating, and coordinating care regarding the above mentioned plan. - Pending Discharge Pending Discharge Within 48 Hours: Yes Pending Discharge Date: 03/07/19 Pending Discharge Time: 11:00 - Physical Exam Constitutional: no apparent distress Eyes: anicteric sclera Ears, Nose, Mouth, Throat: moist mucous membranes, hearing normal Cardiovascular: regular rate and rhythym Respiratory: no respiratory distress, reduced air movement (faint crackles B, no rhonchi or wheezes noted) Gastrointestinal: normoactive bowel sounds, soft, non-tender abdomen, no palpable masses, No rebound, No distension Psychiatric: interacting appropriately, not anxious, not encephalopathic ICD10 Worksheet Patient Problems: Problems Problem Status Onset Acute bronchitis Acute chronic disease [facility]/transitional care Acute Hypertensive urgency, malignant Acute
[2019-03-05] MEDS: ALPRAZolam 0.25 MG TAB PO PRN (10:16)
[2019-03-05] MEDS ORDERED: PSYLLIUM METAMUCIL 1 PKT PO SCH (15:00)
--- NOTE | 2019-03-05 16:17 | PDHOMEO2F ---
Home Oxygen Face to Face Home Orders: I certify that a physician or a nurse practitioner or physician's podiatrist assistant has had a citn-ao-vmld encounter with this patient on the date of this order due to the diagnosis listed, which relates to the primary reason the patient requires home oxygen. Alternative treatments have been tried, or considered, and deemed ineffective. It is anticipated that supplemental oxygen will result in improvement with treatment. Home oxygen qualifying diagnosis: acute hy[oxic respiratory failure Home oxygen secondary diagnosis: parainfluenza virus SpO2 on room air (%): 79 Frequency of home oxygen needed: continuous Home oxygen liters per minute: 4 Home oxygen delivery device: nasal cannula Concentrator: Yes E-tanks for mobility and back up: Yes If ordering portable O2, is the patient mobile in the home?: Yes I certify that, based on these findings, the home oxygen is medically necessary for this patient for the following length of time. Length of time home oxygen needed: 1 month
[2019-03-05] MEDS ORDERED: LACTULOSE 20 GM/30 ML UDCUP PO PRN (16:20)
[2019-03-05] MEDS ORDERED: POLYETHYLENE GLYCOL 3350 17 GM PKT PO PRN (16:20)
[2019-03-05] MEDS ORDERED: BISACODYL 10 MG SUPP PR PRN (16:20)
[2019-03-05] MEDS: DILTIAZEM XR 240 MG CAP PO SCH (17:25)
[2019-03-05] MEDS: ROSUVASTATIN CALCIUM 10 MG TAB PO SCH (17:25)
[2019-03-05] MEDS: MELATONIN 3 MG TAB PO SCH (19:33)
[2019-03-05] MEDS ORDERED: POTASSIUM CL 10 MEQ TAB PO ONE (20:05)
[2019-03-05] MEDS ORDERED: ALPRAZolam 1 MG TAB PO SCH (21:00)
[2019-03-05] MEDS: SENNOSIDES/DOCUSATE SODIUM TAB PO SCH (21:16)
[2019-03-05] MEDS: BIMATOPROST 0.01% RTEYE SCH (21:21)
[2019-03-06] MEDS: IPRATROPIUM/ALBUTEROL 3 ML DEYVIAL IH SCH (05:39)
[2019-03-06] MEDS ORDERED: POTASSIUM CL 10 MEQ TAB PO ONE (06:21)
[2019-03-06] MEDS: TIMOLOL 0.5% RTEYE SCH (08:19)
[2019-03-06] MEDS: ENOXAPARIN 40 MG/0.4 ML SYR SC SCH (08:21)
[2019-03-06] MEDS: CYANO/VITAMIN B12 1000 MCG TAB PO SCH (08:23)
[2019-03-06] MEDS: CALCIUM CARB W/VIT D 500 MG TAB PO SCH (08:23)
[2019-03-06] MEDS: MULTIVITAMINS 1 EACH TAB PO SCH (08:24)
[2019-03-06] MEDS: ASPIRIN EC 81 MG TAB PO SCH (08:25)
[2019-03-06] MEDS: LISINOPRIL 40 MG TAB PO SCH (08:25)
[2019-03-06] MEDS: SENNOSIDES/DOCUSATE SODIUM TAB PO SCH (08:27)
[2019-03-06] MEDS: BRIMONIDINE 0.1% 5 ML OPHT.BTL RTEYE SCH (08:29)
[2019-03-06] MEDS: ALPRAZolam 0.25 MG TAB PO PRN (08:39)
[2019-03-06] MEDS: FLUTICASONE/SALMETER 250/50MCG DISKUS IH SCH (08:42)
[2019-03-06] MEDS ORDERED: predniSONE 20 MG TAB PO SCH (09:00)
[2019-03-06] MEDS ORDERED: ALBUTEROL 60 PUFFS/8 GM MDI IH PRN (11:45)
[2019-03-06] MEDS ORDERED: TIOTROPIUM INHALER 18 MCG/DOSE 5 DOSE/MDI IH SCH (12:00)
[2019-03-06 12:15] VITALS: BP 154/96
--- NOTE | 2019-03-06 14:27 | ASMTLACE ---
LACE Length of stay for Answers: 4-6 days current admission Acuity / Level of Answers: Yes Care: Did the patient have an inpatient admission? Comorbidities - select Answers: Chronic pulmonary disease all that apply Other Notes: HTN; Hx of lung cancer # of Emergency department Answers: 1-2 visits in the last 6 months Social determinants Answers: Mental health diagnosis (anxiety, depression, pers onality disorders, etc.) Score: 14 Date Signed: 03/06/2019 02:26 PM Electronically Signed By:Jacinta Rebollar RN
--- NOTE | 2019-03-06 14:33 | ASMTCMCOM ---
CM Note CM Note Notes: Met with pt and , pt cleared by PT for home. Will dc home with O2, per MD no home care needs. Pt has f/u appt with her PCP tomorrow, she will dc home with support of her . DC Plan: Independent + O2 Date Signed: 03/06/2019 02:33 PM Electronically Signed By:Jacinta Rebollar RN
--- NOTE | 2019-03-06 19:27 | GDS ---
[f rep st] DISCHARGE SUMMARY SERVICE: [facility] Hospitalists. CONSULTS: None. PROCEDURES: 1. On the day of admission, chest x-ray, which showed no acute pneumonias, some mild central vascula r prominence. On , followup chest x-ray, which showed a small right pleural effusi on and mild congestive failure. 2. 03/03/2019, echocardiogram, which showed no effusion, 51% EF, mild concentric LVH. Grade 2 diast olic dysfunction. Slightly dilated right atrium. No intracardiac shunting. Mild mitral annular homa cification. Mild aortic stenosis. Thickening of the tricuspid with trace regurgitation. Ascending aorta 3.1 cm. 3. Chest x-ray on the day of discharge, which showed stable cardiomegaly, stable small right pleural effusion, stable lung base prominence. H AND P: Please see previously entered note by Dr. Madera. ADMISSION DIAGNOSES: 1. Acute hypoxic respiratory failure in the setting of chronic obstructive pulmonary disease, histor y of small cell lung cancer, and ongoing tobacco use. 2. Chronic obstructive pulmonary disease exacerbation. 3. Hypertension. 4. Anxiety. 5. Glaucoma. 6. Ongoing tobacco use. 7. Low sodium of 126. DISCHARGE DIAGNOSES: 1. Acute hypoxic respiratory failure in the setting of chronic obstructive pulmonary disease, histor y of small cell lung cancer, and ongoing tobacco use. 2. Chronic obstructive pulmonary disease exacerbation, positive parainfluenza virus. 3. Hypertension. 4. Anxiety. 5. Glaucoma. 6. Ongoing tobacco use. 7. Low sodium of 126, improved. HOSPITAL COURSE: The patient came to the emergency department because of increasing shortness of james ath and O2 saturation in the 70s on her home O2 monitor. She had a few days of mild cold symptoms wi th a low-grade fever at home. In the emergency department, she had chest x-ray as above. Normal whi te blood cell count. Low sodium at 126 and elevated BNP of 3190, and she was admitted to the [facility] for further evaluation and symptom management. She had a respiratory swab done which subsequently returned positive for parainfluenza virus. She was placed on droplet precautions. She was started o n scheduled DuoNebs along with IV steroids and albuterol nebulizers as needed. She was initially sta rted on Levaquin, but this was stopped when the viral PCR results were received. During the course o f her stay, she continued to have a reasonably significant O2 requirement that ranged from 2-4 L, and she does not use O2 chronically. She remained afebrile throughout her stay. Her blood pressures we re elevated throughout her stay, also ranging from 140s to 170s over 50s to 100s. She had some signi ficant anxiety and difficulty with sleeping. She takes alprazolam as needed at home and this was kiana nged to a nightly dose which assisted her greatly with sleeping. On the day of discharge, she was am bulating, tolerating a regular diet, O2 was decreased and stable at 2 L by nasal cannula. She was gr adually weaned down to oral steroids, which should be continued for at least a week and then slowly t apered as an outpatient. Respiratory therapy was asked to arrange for home O2 and also instructed he r on use of Spiriva daily and albuterol MDI as needed. At home, she generally uses Advair, but I hav e asked her to discontinue this. DISCHARGE MEDICATIONS: She is to continue all of her chronic home medications. She is given a presc ription for prednisone 40 mg to take once a day. She has been given a Spiriva HandiHaler to take onc e a day, and a prescription was also sent to her pharmacy. She was given an albuterol inhaler to adriana e every 4 hours as needed and a prescription was sent to her pharmacy. She should discontinue Advair as noted above. Several discussions were had regarding smoking cessation, but at this time, she is not interested in any assistance and says she will continue to smoke. She has been advised that she absolutely should not smoke when she has her oxygen on or she is anywhere near her oxygen compressor. She has been urged to not smoke for at least another several days if possible, so that her lungs ca n recuperate a bit more from the infection. Contagious precautions were reviewed in general. She crowder s been asked to follow up with [facility] (primary care is Dr. Bang, who is office for week). She can call tomorrow to speak to shelter case manager to set up an appointment with either shaniqua moreno or Dr. Hernandez. /[id number]/MODL
== END 2019-03-06 15:14 | disposition home or self-care (01) | DRG 190 ==
LOC: F3E 20:07
PROVIDERS: ADMIT Internal Medicine; ATTEND Internal Medicine
DX: J44.1 Chronic obstructive pulmonary disease with (acute) exacerbation (principal); J96.01 Acute respiratory failure with hypoxia; J20.4 Acute bronchitis due to parainfluenza virus; I10 Essential (primary) hypertension; F41.9 Anxiety disorder, unspecified; H40.9 Unspecified glaucoma; G47.00 Insomnia, unspecified; Z72.0 Tobacco use; Z85.118 Personal history of other malignant neoplasm of bronchus and lung
CPT/HCPCS: 96374; 97116-GP; 97162-GP; 97165-GO; 97535-GO; J1650; J1940; J1956; J2930; J7512; J7613